=== PATIENT | male | born 1985 | race Caucasian/White ===

== ENCOUNTER 2018-11-19 07:15 | Outpatient (RCR) | payer OTHER, SELFPAY ==
--- NOTE | 2018-08-13 15:36 | MASS.EVAL ---
Massage Therapy Evaluation: Initial Evaluation Date: 08/13/2018 SUBJECTIVE: Wallace is a 32 year old male who was referred to the [facility] facility for a massotherapy evaluation by Dr. Fernie Barrera with the diagnosis of low back pain. Wallace presents today with the symptoms of tension and pain in his right low back and right hip with pain radiating down his right leg. He also complains of neck tension. Wallace reports having a medical history chronic neck and upper back pain with radiating pain in his neck, upper and mid back. He reports having the low back and right lower extremity symptoms for several months. He reports that he feels improvement with stretching, foam rolling and activity modification. OBJECTIVE: Upon observation Wallace has good posture in sitting and standing. After examination and palpation I found Wallace to have very high muscle tension with tenderness and myofascial restrictions in his sub occipitals, levator scapulae, trapezius, rhomboids, scalenes, and thoracic paraspinals. His right QL, right hip including glute medius and minimus, right hamstrings, quads and peroneal muscle group were all very tight with fascial restrictions, tender points and trigger points. The first treatment consisted of a one hour massage to his full body with myofascial release, muscle stripping, trigger point compression techniques, and cervical manual traction. ASSESSMENT: I feel that Wallace is a good candidate for massotherapy at this time. He had a favorable response to the first treatment with reduction in his muscle aches, pain and tension. He also had improvement in his cervical flexibility and right hip flexibility. PLAN: The plan of care was reviewed with the patient. The patient is to be seen on as needed basis for a total of ten sessions with the recommendation of once every two weeks for a one hour treatment.
--- NOTE | 2018-11-19 10:57 | DS.PCM_ITS ---
Massage Therapy Discharge Summary: Discharge Date: 11/19/2018 Wallace was seen for a massotherapy evaluation on 08/13/2018 with the diagnosis of low back pain. He was treated with five sessions of massage therapy consisting of deep pressure soft tissue techniques, myofascial release and trigger point compression to his cervical, thoracic, lower back, upper extremities, lower extremities and hips. Wallace responded well to the therapy by reporting decreased tension and pain throughout his head, neck, shoulders, lower back and hips. His goals for therapy were met throughout the treatment sessions. At this time this patient is being discharged from our care at [facility] facility.
== END 2018-11-19 12:35 | disposition home or self-care (01) ==
LOC: MASS 07:15
PROVIDERS: Family Provider Family Medicine; PCP Family Medicine; Visit Provider Family Medicine
DX: M54.5 Low back pain (principal); M54.6 Pain in thoracic spine
CPT/HCPCS: 97124

== ENCOUNTER → 2018-12-05 07:55 | Outpatient (REF) | payer SELFPAY ==
[2018-12-03 08:50] VITALS: BMI 26.1
== END ==
LOC: HPRAD 07:55
PROVIDERS: Family Provider Family Medicine; PCP Family Medicine; Referring Provider Chiropractor; Visit Provider Chiropractor
DX: M99.02 Segmental and somatic dysfunction of thoracic region (principal)
CPT/HCPCS: 72070

== ENCOUNTER 2024-09-19 12:18 | Emergency (ER) | payer OTHER, SELFPAY ==
[2024-09-19 12:19] VITALS: BP 129/91; PULSE 75; RESP 16; TEMP 36.6; O2SAT 100; BMI 26.4
--- NOTE | 2024-09-19 12:59 | EKG12_ITS ---
Test Reason : PALPITATIONS Blood Pressure : */* mmHG Vent. Rate : 71 BPM Atrial Rate : 71 BPM P-R Int : 132 ms QRS Dur : 94 ms QT Int : 414 ms P-R-T Axes : 57 29 26 degrees QTcB Int : 449 ms Normal sinus rhythm Normal ECG Confirmed by DANIELLA LOCKWOOD, MELINA ([id number]), script editor JARRED MORRELL ([id number]) on 09/20/2024 8:20:56 AM Referred By: Confirmed By: MELINA BREWER MD
--- NOTE | 2024-09-19 13:13 | NURSING ---
NO OLD EKGS
--- NOTE | 2024-09-19 13:16 | EDS_ITS ---
HPI History of Present Illness Chief Complaint: Palpitations Informant: patient and spouse/S.O. Narrative Narrative: Patient presenting describing palpitations while at work 10:30 AM. Symptoms lasted hours he states transient lightheaded symptoms tingling in bilateral fingers. He drinks coffee daily. No energy drinks. No recreational drugs. He drinks alcohol 3 drinks a week. No recent cough. No vomiting or diarrhea. No urinary symptoms. He does have a PCP gets blood work yearly. There has been no abnormalities. Reported coworker had Apple watch, was placed on him there was concern for A-fib, he was urged to come the ED for evaluation. He is currently asymptomatic. Prior similar symptoms: No PFSH PFSH Medical History Asthma neck and back pain endooscopy Home Medications ?Medication ?Instructions ?Recorded ?Last Taken ?Type NK 04/10/24 Unknown History Allergy/AdvReac Type Severity Reaction Status Date / Time No Known Allergies Allergy Verified 09/19/24 12:19 Surgical History History of hernia repair Social History Smoking Status: Never smoker alcohol intake: current alcohol intake frequency: a few times a month ROS [facility] ED Constitutional Constitutional ED: Denies chills, fever(s) or sweats Eyes Eyes: Denies change in vision ENT ENT ED: Denies dysphagia or sore throat Cardiovascular Cardiovascular: Reports palpitations and racing heartbeat; Denies chest pain or leg edema Respiratory/Chest Respiratory/Chest: Denies cough, dyspnea or dyspnea on exertion Gastrointestinal Gastrointestinal: Denies abdominal pain, diarrhea, nausea or vomiting Genitourinary Genitourinary ED: Denies dysuria, hematuria or urinary frequency Musculoskeletal Musculoskeletal: Denies back pain, extremity pain or neck pain Integumentary Denies rash or wounds Neurologic Neurologic: Reports paresthesias; Denies headache(s) or weakness EXAM Physical Exam Const Vital Signs: 09/19/24 12:19 09/19/24 13:30 Temperature 97.8 F 97.8 F Temperature Source Temporal Pulse Rate 75 78 Respiratory Rate 16 16 Blood Pressure 129/91 H 138/88 H Blood Pressure Mean 103 104 Pulse Ox 100 99 Oxygen Delivery Method Room Air Positive well nourished and well developed General Appearance ED: well developed and NAD HEENT Reports moist mucous membranes normocephalic and atraumatic Eyes EOMs intact bilaterally and conjunctivae normal General Eye ED: Yes normal appearance of both eyes Neck no lymphadenopathy and supple General: Negative for tenderness Chest Wall Chest: Negative for tenderness Resp normal respiratory effort and normal air movement Effort and Inspection: symmetric chest movement; Negative for respiratory distress Cardio regular rate, regular rhythm and no murmurs Peripheral Pulses: pulses 2+ throughout GI normal to inspection, nondistended, normoactive bowel sounds and non-tender Palpation: Negative for guarding or rebound tenderness present Back/Spine no CVA tenderness and no thoracic nor lumbar tenderness Extremity normal to inspection General Extremety ED: Negative for edema or tenderness General Extremity: Negative for edema Neuro oriented x3 and no sensory deficits noted Sensorium / Orientation: awake and alert Skin no rashes or lesions noted and no wounds MDM MDM MDM Narrative Medical decision making narrative: Interventions / MDM: Differential diagnosis: Palpitations, cardiac dysrhythmia Diagnosis considered but do not suspect: N/A My EKG interpretation: Sinus rate of 71, no ST changes. Isolated T wave version lead III. QTc 449. Nonspecific findings. Imaging independently reviewed and interpreted by myself: N/A External documents reviewed: N/A Test considered but not ordered:N/A ED course: Patient EKG sinus rhythm. Palpitations. His coworker did send him a photo of the rhythm that was concerned on his phone. I reviewed this. Did not see any signs concerns for A-fib. Regular rate and rhythm once noted with P waves. Reassured with this. I discussed he had no clinical symptoms of cough vomiting. However offered screening with basic labs and thyroid. He declines at this time. Will set him up for 48-hour Holter monitor further evaluation. He will follow-up with his PCP. All questions were answered. Re-evaluation: stable Disposition discussed with patient/family/significant other: Patient significant other Case discussed with consulting clinician: N/A This note was generated with [employer] dictation software. It may contain incorrect words, spelling, and punctuation that were not noted in checking the note before signing. Discharge Plan Triage Chief Complaint: Palpitations ED Provider: Gael Bray Dx/Rx/DC Orders Clinical Impression: Palpitations, Caffeine use Instructions: ED Palpitations Prescriptions: No Action NK Primary Care Provider: Fernie Barrera Referrals: Fernie Barrera, [Primary Care Provider] - 1 Week Activity Restrictions/Additional Instructions: 48-hour Holter monitor set up for you. Return as discussed with respiratory therapy. Follow-up your doctor. You develop recurrent symptoms persisting more lightheaded symptoms, return to ED for reevaluation. Print Language: Persian Disposition Disposition: Home, Self Care Discharge Date/Time: 09/19/24 13:31
[2024-09-19 13:30] VITALS: BP 138/88; PULSE 78; RESP 16; TEMP 36.6; O2SAT 99
== END 2024-09-19 13:31 | disposition home or self-care (01) ==
PROVIDERS: Emergency Provider Emergency Medicine; PCP Family Medicine; Visit Provider Emergency Medicine
DX: R00.2 Palpitations (principal); F15.90 Other stimulant use, unspecified, uncomplicated; R20.2 Paresthesia of skin
CPT/HCPCS: 93005; 93225; 93226; 99282

== ENCOUNTER → 2024-09-19 | Outpatient (CLI) | payer OTHER, SELFPAY | END | disposition home or self-care (01) | LOC: CVS 13:15 | PROVIDERS: PCP Family Medicine; Referring Provider Specialist; Visit Provider Emergency Medicine | DX: Z00.00 Encounter for general adult medical examination without abnormal findings (principal) ==

== ENCOUNTER 2025-01-03 13:00 | Outpatient (RCR) | payer OTHER, SELFPAY ==
--- NOTE | 2024-10-14 08:49 | HP.PTEVAL_ITS ---
Patient's Visit Information Visit Information Visit Information: JENN FLORENTINO is a 38 year old M referred to Physical Therapy by Dr. Brisa Cowart DC with a diagnosis of DDD and thoracic somatic dysfunction. Date of Evaluation: 10/09/24 Physical Therapist: Everette Vivas DPT Visit Plan Frequency: 2x /Week Duration: 6 Weeks Plan: 1) IASTIM to B UT levator scap, SCM. Add in this with movements once tolerating 2) DN to B UT, levator scap, SCM as needed. 3) cervical retraction, deep neck flexor strengthening Subjective Subjective: Pt. is here today for his initial evaluation with diagnosis of somatic dysfunction of thoracic spine, DDD. Pt. reports having issues with his thoracic spine and cervical spine for a few years now. He reports having to really focus on controlled movements and to be careful with what lifting activities he does due to increased tightness. Pt. reports symptoms mostly as tightness, but will occasionally get electric shock like pain, but not often. Pt. reports no N/T in iether UE. No changes in UE strength. Pt. reports having relief with cervical retractions and does them frequently. Pt. is sleeping okay. He reports increased issues with lifting OH and with straining his neck. Pt. does she chiro with good relief as well. Pt. is hopeful to reduce symptoms in order to complete all recreational and work activities without limitations. Pain Upper thoracic spine: Pain Intensity (Out of 10): 2 Pain Intensity Range: 0 and 5 Cervical spine: Pain Intensity (Out of 10): 1 Pain Intensity Range: 0 and 4 Comment: R side Objective Objective: POSTURE: Pt. has decent posture in stance. No major abnormality noted. PALPATION: Pt. has tenderness at B insertion of SCM, R worse than L. Pt. has soreness at R UT and R levator scap. NEURO: normal throughout ROM: cervical spine: full motions reprots of tightness at end range rotation bilat. Normal B shoulder ROM. MMT: 5/5 throughout cervical and thoracic musculature. Special Tests C/S Radiculapathy - Left Upper limb tension test: Negative C/S Radiculapathy - Right Upper limb tension test: Negative C/S Radiculapathy - Left Spurlings: Negative C/S Radiculapathy - Right Spurlings: Negative C/S Radiculapathy - Left Cervical distraction: Negative C/S Radiculapathy - Right Cervical distraction: Negative C/S Radiculapathy - Left Relief test: Negative C/S Radiculapathy - Right Relief test: Negative C/S Radiculapathy - Valsalva: Negative Sharp Alla: Negative Vertebral Artery Test: Negative Alar Ligament Test: Negative Balance/Special Test Scores Oswestry Neck Score: 20 Goals Goal 1:: LTG: Pt. to be I with HEP. Goal Time Frame: 4-6 Weeks Goal 2:: STG: pt. to sleep throughout the night without increase in symptoms. Goal Time Frame: 2 Weeks Goal 3:: LTG: Pt. to resume all lifting activities without increase in thoracic or cervical spine pain. Goal Time Frame: 4-6 Weeks Goal 4:: LTG: Pt. have full cervical ROM without reports of increased tightness. Goal Time Frame: 4-6 Weeks Rehabilitation Potential Physical Therapy Diagnosis: Pt. has signs and symptoms consistent with DDD and thoracic somatic dysfunction. Pt. has marked muscle tightness most likely due to muscle guarding. He has what appears to be muscle activation issues and sensiti zation issues. Pt. would benefit from PT to address the above limitations progressing back to all work and recreational issues without limitations. Rehabilitation Potential: Excellent Anticipated Interventions Patient/Client Instruction: Educate patient on: Condition, Plan of Care, Risk Factors and Benefits of Fitness Program For the Purpose of:: To foster healthy habits, To improve decision making, To facilitate caregiver knowledge, To improve self management, To prevent re-injury and To improve ability to perform tasks related to life management Therapeutic Exercise to Include: Strength training, Body mechanics, Postural training, Flexibilty training, Passive ROM, Active ROM, Rachelle Exercises and Scapular Strength/Stabilization For the Purpose of:: To decrease pain, To increase ROM, To improve nutrient delivery to tissue, To increase oxygenation perfusion, To improve muscle performance and motor function, To improve ability to perform ADL's, To improve health of tissue, To decrease soft tissue restriction and To increase flexibility/ROM Manual Therapy Techniques to Include: Functional dry needling and Soft tissue mobilization Comment: IASTIM For the Purpose of:: To decrease pain, To decrease swelling/inflammation, To increase ROM, To improve nutrient delivery to tissue, To increase oxygenation perfusion and To improve muscle performance and motor function Text: Thank you for the opportunity to evaluate your patient. For Medicare and Medicare HMO plans, please review the plan of care and approve it. It will need to be FAXED BACK to us at [phone] for Medicare purposes. For Medicare only, by signing this I certify the plan of care. Please let me know if there are questions or concerns regarding this plan of care. Physician Signature: Date:
== END 2025-01-03 19:00 | disposition home or self-care (01) ==
LOC: PT 13:00
PROVIDERS: PCP Family Medicine; Referring Provider Chiropractor; Visit Provider Chiropractor
DX: M51.34 Other intervertebral disc degeneration, thoracic region (principal); M99.02 Segmental and somatic dysfunction of thoracic region
CPT/HCPCS: 97110; 97140; 97161